=== PATIENT | male | born 1995 | race Caucasian/White ===

== ENCOUNTER 2017-08-29 17:32 | Emergency (ER) | payer MEDICAID, MEDICARE ==
[~2017-08-29] VITALS: Ht 154.9 cm; Wt 55.8 kg
[2017-08-29 17:54] VITALS: BP 128/62
--- NOTE | 2017-08-29 17:58 | NUR ---
patient to lobby awaiting available room. gcs=15 with steady gait.
--- NOTE | 2017-08-29 19:12 | NUR ---
21/M C/O 710 INTERMITTENT POSTERIOR HEADACHE RADIATING TO RT NECK AND MOUTH, WORSENING OVERTIME X 2 MONTHS. ALSO C/O RT EAR ACHE AND STATES " SOMETHING IS IN IT". NONTRAUMATIC. BARBARA, GCS 15, DENIES VISUAL DISTURABANCES, REPORTS NAUSEA. DENIES PMH/RX/OTC
--- NOTE | 2017-08-29 19:13 | NUR ---
PT AMBULATED TO ER BED 08
[2017-08-29] MEDS ORDERED: KETOROLAC 30 MG/ML VIAL IM ONE (19:30)
--- NOTE | 2017-08-29 19:36 | NUR ---
PT TAKEN TO CT
[2017-08-29 20:12] VITALS: BP 126/98
== END 2017-08-29 20:12 | disposition home or self-care (01) ==
LOC: MED 17:32
DX: R51 Headache (principal); H53.8 Other visual disturbances
CPT/HCPCS: 70450; 96372; 99284; J1885

== ENCOUNTER 2021-04-15 11:05 | Emergency (ER) | payer BC, MEDICAID, MEDICARE ==
[~2021-04-15] VITALS: Ht 160 cm; Wt 65.3 kg
[2021-04-15 11:20] VITALS: BP 134/89
--- NOTE | 2021-04-15 13:02 | NUR ---
NO NURSING INTERVENTIONS DONE, NO COMPLETE ASSESSMENT NEEDED.
[2021-04-15 13:03] VITALS: BP 134/89
--- NOTE | 2021-04-15 13:03 | NUR ---
Patient discharged with v/s stable. Written and verbal after care instructions given FOR NASAL FRACTURE AND ZYGOMA FRACTURE and explained. Patient verbalized understanding. Ambulatory with steady gait. All questions addressed prior to discharge. Advised to follow up with PMD.
== END 2021-04-15 13:03 | disposition home or self-care (01) ==
LOC: MED 11:05
DX: S02.402A Zygomatic fracture, unspecified side, initial encounter for closed fracture (principal); S02.2XXA Fracture of nasal bones, initial encounter for closed fracture; W55.12XA Struck by horse, initial encounter; Y93.89 Activity, other specified; Y92.89 Other specified places as the place of occurrence of the external cause; Y99.8 Other external cause status
CPT/HCPCS: 99281